=== PATIENT | male | born 1995 | race African-American/Black ===

== ENCOUNTER 2020-11-04 15:23 | Emergency (ER) | payer BC, OTHER ==
[~2020-11-04] VITALS: Ht 185.4 cm; Wt 125.0 kg
[~2020-11-04 15:23] MED LIST: FLUT9.9S NS; LORA10TA68 PO; NAPR220T70 PO; OXYC1TAB15 PO; PROVENTIL HFA6.7 GM IH
[2020-11-04 16:07] VITALS: BP 142/77
--- NOTE | 2020-11-04 16:12 | PHYS DOC ---
Past Medical History Past Medical History: No Pertinent History Past Surgical History: No Surgical History Smoking Status: Never Smoker Alcohol Use: None General Adult EDM: Chief Complaint: KNEE INJURY HPI: HPI: This is a pleasant 25-year-old male presented emergency department today with right knee pain. His pain is a sharp shooting throbbing aching pain. He injured his knee about a month ago playing football since then has pain with walking. He has not sought medical services in any other fashion at this point. He has a history of a PCL injury and is seeing Dr. Mason for that in the past. Review of systems negative for numbness weakness tingling or any other injuries. Negative for chest pain abdominal pain. All other review of systems negative. ED course: 25-year-old male presenting as a right knee injury about a month ago which has not improved. X-ray unremarkable. We will place the patient weightbearing as tolerated and refer him to orthopedic surgery in 1 to 2 days for outpatient referral. He will need an MRI of his knee within the next 5 to 7 days. The patient has been examined and was not found to have an emergency medical condition. The patient was then discharged home in stable condition to follow up with their primary care physician over the next 1-2 days. They were to return if their symptoms worsened or if they were concerned for any reason. They were also instructed to return to the emergency department if they were unable to get the recommended and appropriate follow-up. [id number] discharge instructions and return precautions were given. Patient's questions were answered to their satisfaction. Patient is comfortable with plan. Heart Score: C/O Chest Pain: No Risk Factors: Risk Factors: DM, Current or recent (<one month) smoker, HTN, HLP, family his tory of CAD, obesity. Risk Scores: Score 0 - 3: 2.5% MACE over next 6 weeks - Discharge Home Score 4 - 6: 20.3% MACE over next 6 weeks - Admit for Clinical Observation Score 7 - 10: 72.7% MACE over next 6 weeks - Early Invasive Strategies Allergies: Allergies: Allergies Coded Allergies Type Severity Reaction Last Updated Verified nickel Allergy Intermediate Hives 06/02/15 Yes orange Allergy Intermediate Hives 06/02/15 Yes milk Adverse Reaction Intermediate SEE COMMENT 06/02/15 Yes Physical Exam: PE: Constitutional: Well developed, well nourished, no acute distress, non-toxic appearance. [] HENT: Normocephalic, atraumatic, bilateral external ears normal, oropharynx moist, no oral exudates, nose normal. [] Eyes: PERRLA, EOMI, conjunctiva normal, no discharge. [] Neck: Normal range of motion, no tenderness, supple, no stridor. [] Cardiovascular:Heart rate regular rhythm, no murmur [] Lungs & Thorax: Bilateral breath sounds clear to auscultation [] Abdomen: Bowel sounds normal, soft, no tenderness, no masses, no pulsatile masses. [] Skin: Warm, dry, no erythema, no rash. [] Back: No tenderness, no CVA tenderness. [] Extremities: The patient's right knee is normal in appearance without an effusion. No erythema. Normal temperature to touch. Pain with passive range of motion. Normal anterior and posterior drawer test. Palpable pulse distally with 2- second cap refill. Neurologic: Alert and oriented X 3, normal motor function, normal sensory function, no focal deficits noted. [] Psychologic: Affect normal, judgement normal, mood normal. [] EKG: EKG: [] Radiology/Procedures: Radiology/Procedures: [] Course & Med Decision Making: Course & Med Decision Making Pertinent Labs and Imaging studies reviewed. (See chart for details) [] Dragon Disclaimer: Dragon Disclaimer: This electronic medical record was generated, in whole or in part, using a voice recognition dictation system. Departure Departure Impression: Primary Impression: Knee pain Disposition: ADMITTED INPT THIS HOSP Condition: STABLE Referrals: NO PCP (PCP) MARCIE MASON MD Patient Instructions: Knee Pain Additional Instructions: EMERGENCY DEPARTMENT GENERAL DISCHARGE INSTRUCTIONS Follow-up with orthopedic surgery in 1 to 2 days. Return to the emergency department if you have any new or concerning findings. Thank you for coming to [facility] Emergency Department (ED) today and trusting us with you care. We trust that you had a positive experience in our Emergency Department. If you wish to speak to the department management, you may call the Director at [phone]. Follow up is important in emergency/acute care visits. This condition should be evaluated by your primary care physician and any necessary consulting services for continued management within a few days (1-2) after discharge. Return to the emergency department if you have any new or concerning symptoms including but not limited to fever, chills, nausea, vomiting, intractable pain, any new rashes, chest pain, shortness of breath, uncontrolled bleeding, difficulty breathing, and/or vision loss. 1. Do you have a private Doctor? If you do not have a private doctor, please ask for a resource list of physicians or clinics that may be able to assist you with follow up care. 2. If a lab test or culture has been done and does not come back immediately, your results will be reviewed and you will be notified if you need a change in treatment. 3. Your care today has been supervised by a physician who is specially trained in emergency care. Many problems require more than one evaluation for a complete diagnosis and treatment. We recommend that you schedule your follow up appointment as recommended to ensure complete treatment of you illness or injury. If you are unable to obtain follow up care and continue to have a problem, or if your condition worsens, we recommend that you return to the ED. 4. We are not able to safely determine your condition over the phone nor are we able to give sound medical advice over the phone. For these safety reasons, if you call for medical advice we will ask you to come to the ED for further evaluation. IF YOUR SYMPTOMS WORSEN OR NEW SYMPTOMS DEVELOP, OR YOU HAVE CONCERNS ABOUT YOUR CONDITION; OR IF YOUR CONDITION WORSENS WHILE YOU ARE WAITING FOR YOUR FOLLOW UP APPOINTMENT; EITHER CONTACT YOUR PRIMARY CARE DOCTOR, THE PHYSICIAN WHOSE NAME AND NUMBER YOU WERE GIVEN, OR RETURN TO THE ED IMMEDIATELY. ASHLEY BLACKWELL MD Nov 04, 2020 16:12
--- NOTE | 2020-11-04 16:40 | RAD ---
Study: XR KNEE 3 VIEWS_RT Indication: Right knee pain. Comparison: Right knee MRI 05/22/2015 Findings: Sequela of PCL repair. No acute fracture. Smooth undulation of the trochlea on the lateral view was p resent on the comparison MRI. Mild chronic deformity at the inferior pole of the patella. Tiny osteop hyte formation at the superior pole the patella. Femorotibial compartment joint space height is favor ed maintained and not well assessed on the AP views. A very small knee joint effusion may be present. Impression: 1. Status post PCL repair. No acute fracture or malalignment. 2. Very mild early degenerative changes at the patellofemoral compartment with a tiny osteophyte at t he superior patellar pole. 3. Possible very small knee joint effusion. Electronically signed by: ABDIRASHID CAPPS MD (11/04/2020 4:37 PM) [facility]
== END 2020-11-04 17:53 | disposition home or self-care (01) ==
LOC: ER 15:23
DX: M25.561 Pain in right knee (principal); Z91.011 Allergy to milk products; Z91.018 Allergy to other foods; Z88.8 Allergy status to other drugs, medicaments and biological substances
CPT/HCPCS: 73562; 99283